=== PATIENT | female | born 1995 | race Two or more races ===

== ENCOUNTER 2017-07-12 09:23 | Inpatient (IN) | payer OTHER ==
[2017-07-12] MEDS ORDERED: Acetaminophen 325 MG Tab PO PRN ×2 (11:31)
[2017-07-12] MEDS ORDERED: Carboprost Tromethamine 250 MCG/1 ML Amp IM PRN (11:31)
[2017-07-12] MEDS ORDERED: Methylergonovine 0.2 MG/1 ML Amp IM PRN (11:31)
[2017-07-12] MEDS ORDERED: Misoprostol 400 MCG (4 X 100 MCG TAB) RECTAL PRN (11:31)
[2017-07-12] MEDS ORDERED: Sodium Chloride 0.9% 10 ML Syringe FLUSH PRN (11:31)
[2017-07-12] MEDS ORDERED: Lactated Ringers 500 ML IV ONE (11:31)
[2017-07-12] MEDS ORDERED: Ondansetron 4 MG/2 ML SDV IV PRN (11:31)
[2017-07-12] MEDS ORDERED: Lidocaine 1% 30 ML SDV INJECT PRN (11:31)
[2017-07-12] MEDS ORDERED: Lactated Ringers 1,000 ML IV SCH (11:45)
[2017-07-12] MEDS: Lactated Ringers 1,000 ML IV SCH ×4 (12:27→22:04)
[2017-07-12] MEDS: Oxytocin/Normal Saline 30 UNIT/500 ML BAG IV SCH (12:28)
--- NOTE | 2017-07-12 20:50 | OBOUT ---
DATE: 07/12/2017 INDICATION FOR NST: Post-dates at 40 and 6/7 weeks. REPORT: Baseline heart rate 145 beats per minute. Moderate tagj-[id number]-lrob variability. Accelerations noted. Perla shows some uterine irritability with only 2 contractions. INTERPRETATION: Category 1, reassuring and reactive NST. For billing, please check and see if this was already billed out through the clinic. [facility] /[id number]
[2017-07-12] MEDS ORDERED: fentaNYL 100 MCG/2 ML SDV ONE (21:12)
[2017-07-12] MEDS ORDERED: ePHEDrine 50 MG/ML SDV ONE (21:29)
--- NOTE | 2017-07-12 22:39 | PCM.PRNOTE ---
- Free Text/Narrative Note: Requested to provide analgesia to full term patient in severe pain. Upon entering the room, patient is sitting on side of bed complaining of severe abdominal pain and discomfort. Procedure was discussed with patient including adverse outcomes and expectations. Pt consented to analgesia, SAB/IT. Pt placed into a proper sitting position. Landmarks for SAB/IT were identified and marked. Back was prepped with betadine x3. A sterile, transparent, fenestrated drape was applied. Excess betadine was removed. Using 3 mL of a 1% lidocaine solution, a skin wheel was placed at the L3/L4 interspace. A 24 ga ( 4 inch) Pencan spinal needle was inserted until positive for CSF. Negative for heme or paresthesias. Injected fentanyl 20 mcg, sufentanil 10 mcg, and 12 mg of a 0.75% bupivacaine solution with an epi wash. Pt was placed left lateral position for approximately 20 minutes. During this time, patient complained of nausea and was given additional fluid bolus plus 10 mg Ephedrine IVP for a BP of 92/44. 30 minutes later, patient was not complaining of any nausea but received 5 mg Ephedrine IVP for a BP of 85/55 (66). Baby was on monitor entire time, had a few early decels and lates. Dr. Mai present. Will continue to monitor
[2017-07-12] MEDS ORDERED: Benzocaine/Menthol 20%-0.5% Spray 56 GM Canister TOP PRN (23:09)
[2017-07-12] MEDS ORDERED: Simethicone 80 MG Tab.Chew PO PRN (23:09)
[2017-07-13] MEDS: Oxytocin/Normal Saline 30 UNIT/500 ML BAG IV SCH (00:46)
[2017-07-13] MEDS: Prenatal Multivitamin with Calcium/Folic Acid/Iron Tab PO SCH (10:03)
[2017-07-13] MEDS: Docusate Sodium 100 MG Cap PO PRN ×2 (10:03→22:03)
[2017-07-13] MEDS: Ferrous Sulfate 325 MG Tab PO SCH (10:03)
[2017-07-13] MEDS: Ibuprofen 800 MG Tab PO PRN ×2 (10:04→22:02)
[2017-07-14] MEDS: Prenatal Multivitamin with Calcium/Folic Acid/Iron Tab PO SCH (08:39)
[2017-07-14] MEDS: Ferrous Sulfate 325 MG Tab PO SCH (08:39)
[2017-07-14] MEDS: Ibuprofen 800 MG Tab PO PRN (08:46)
[2017-07-14] MEDS: Docusate Sodium 100 MG Cap PO PRN (08:49)
[2017-07-14] MEDS ORDERED: ePHEDrine 50 MG/ML SDV IV ONE (10:44)
[2017-07-14] MEDS ORDERED: fentaNYL 100 MCG/2 ML SDV ITHECAL ONE (10:44)
--- NOTE | 2017-07-14 16:07 | DISCH ---
ADMISSION DIAGNOSES: 1. A 40 and 6/7 weeks gestation by last menstrual period. 2. 2, para 1-0-0-1. 3. History of fast labor. 4. Anemia of . 5. Blood type O negative, rubella immune, group B strep negative. DISCHARGE DIAGNOSES: 1. A 40 and 6/7 weeks gestation by last menstrual period. 2. 2, now para 2-0-0-2. 3. History of fast labor. 4. Anemia of . 5. Blood type O negative, rubella immune, group B strep negative. 6. Status post spontaneous vaginal delivery after induction of labor. PERTINENT PROCEDURES: 1. Induction with Pitocin. 2. Artificial rupture of membranes, intrathecal. 3. Spontaneous vaginal delivery. BRIEF HISTORY: A 21-year-old female, admitted to the hospital for induction of labor for post-dates , and this was performed without incident. See admission history and physical and progress notes as well as delivery notes for full details. There were no complications with her delivery. Baby's scores were 8 and 9. weight 3410 g, 7 pounds, 8 ounces. Length 19-3/4 inches. She was in stage I for about 8 hours, and only pushed for 10 minutes, but went quickly from 5 cm dilated to delivery. HOSPITAL COURSE: Hospital course has been good. Since delivery, she has been ambulating, tolerating regular diet, voiding without difficulties. She has not yet had a bowel movement, but is passing flatus. Bleeding has been minimal. She is and that seems to be going well. No symptoms of preeclampsia. Maternal and child bonding is appropriate, and there have been no other concerns. She has had a little bit of nipple pain and is also breast pumping, but that is expected. DISCHARGE CONDITION: Good. PHYSICAL EXAMINATION: Vital Signs: Temperature 97.4, pulse 81, blood pressure 100/74, respiratory rate of 16, and O2 saturations 99% on room air. HEENT: Unremarkable. Heart: Regular without murmur. Lungs: Clear bilaterally. Abdomen: Soft, nontender. Fundus is firm and below the umbilicus. Extremities: No edema, erythema, or tenderness noted. LABORATORY DATA: Discharge hemoglobin is 9.7, platelets 274. DISPOSITION: Home with family. MEDICATIONS: 1. Iron 325 mg twice daily. 2. Ibuprofen 600 mg every 6 hours as needed for pain. 3. Tylenol 650 mg every 6 hours as needed for pain. 4. Colace 100 mg twice daily p.r.n. for constipation. 5. vitamin 1 daily. FOLLOWUP: She will call the office tomorrow and plan on making her 6-week care visit, uncertain if by that time, she will be moving back to [place] or she will still be in the area. DISCHARGE INSTRUCTIONS: Routine post vaginal delivery care instructions were provided, specifically to come back in if she has any increased bleeding, unusual drainage or discharge, fever, chills, increased pain, or other concerns and her questions were answered. [facility] /[id number]
--- NOTE | 2017-07-15 07:03 | DEL ---
DATE: 07/12/2017 PREPROCEDURE DIAGNOSES: 1. A 40 and 6/7 weeks gestation based on last menstrual period. 2. 2, para 1-0-0-1. 3. History of fast labor. 4. Anemia of . 5. Blood type O negative. 6. Rubella immune. 7. Group B strep negative. POSTPROCEDURE DIAGNOSES: 1. A 40 and 6/7 weeks gestation based on last menstrual period. 2. 2, para 2-0-0-2. 3. History of fast labor. 4. Anemia of . 5. Blood type O negative. 6. Rubella immune. 7. Group B strep negative. 8. Status post spontaneous vaginal delivery. 9. Viable male infant. BRIEF HISTORY: A 21-year-old female with the above-listed diagnoses, was brought into the hospital for induction of labor, which was performed with Pitocin and artificial rupture of membranes. She had approximately 8 hours of stage I, pushed for about 10 minutes before successful vaginal delivery as below. She had an intrathecal for pain management, and it worked quite well for her. PROCEDURE IN DETAIL: With the patient in dorsal lithotomy position, she delivered a viable male infant in the OA position over intact perineum. Once was delivered, his mouth was suctioned because of a pocket of fluid being present, and he was dried and stimulated. Three-vessel umbilical cord was doubly clamped and cut, and he was taken over to the warmer to be cleaned up before being given to his mother. Cord blood sample was obtained. Placenta delivered by gentle cord traction and concomitant uterine massage, inspected and intact. Labia, vagina, and cervix were inspected and intact without any significant lacerations. ESTIMATED BLOOD LOSS: 300 mL. COMPLICATIONS: None. DISPOSITION: Mother and baby to stay in the room at this time to initiate bonding. [facility] /[id number] [place]
--- NOTE | 2017-07-15 07:04 | PN ---
DATE: 07/13/2017 SUBJECTIVE: day #1, status post vaginal delivery late last night. Reports that she has been doing well. She has been ambulating and tolerating regular diet. Bleeding has been normal as expected. She has not had a bowel movement yet. She is voiding without difficulties. her baby, seems to be going well. Denies any symptoms of preeclampsia. Has no shortness of breath or chest pain and no other acute concerns. OBJECTIVE: Vital Signs: She is afebrile. Pulse is 97, blood pressure 103/76, and respiratory rate of 16. Heart: Regular without obvious murmur. Lungs: Clear to auscultation bilaterally. Abdomen: Soft and nontender. Fundus is firm and below the umbilicus. Extremities: Trace edema. No erythema or tenderness noted. ASSESSMENT: 1. 2, now para 2-0-0-2. 2. Status post spontaneous vaginal delivery without complications. 3. mother. Rh negative. Baby's blood type is A negative and cord blood. LUNA was negative; therefore, RhoGAM was not indicated. PLAN: Continue normal nursery cares and anticipate discharge home tomorrow as long as all continues to go well. Mother's questions have been answered. [facility] /[id number] [place]
== END 2017-07-14 10:45 | disposition home or self-care (01) | DRG 775 ==
LOC: DL.OBCHECK 09:23 → DL.OB 10:45 → OBSVTOIN 22:34 → DL.OB 22:34
PROVIDERS: ADMIT Family Medicine; ATTEND Family Medicine
PROC: 10E0XZZ Delivery of Products of Conception, External Approach (ICD-10-PCS; principal; 2017-07-12)
PROC: 3E0P3VZ Introduction of Hormone into Female Reproductive, Percutaneous Approach (ICD-10-PCS; 2017-07-12)
PROC: 10907ZC Drainage of Amniotic Fluid, Therapeutic from Products of Conception, Via Natural or Artificial Opening (ICD-10-PCS; 2017-07-12)
PROC: 00HU33Z Insertion of Infusion Device into Spinal Canal, Percutaneous Approach (ICD-10-PCS; 2017-07-12)
PROC: 3E0R3BZ Introduction of Anesthetic Agent into Spinal Canal, Percutaneous Approach (ICD-10-PCS; 2017-07-12)
DX: O48.0 Post-term pregnancy (principal); O99.02 Anemia complicating childbirth; Z37.0 Single live birth; Z3A.41 41 weeks gestation of pregnancy
CPT/HCPCS: 36415; 59409; 85027; A9270-GY; J2405; J2590; J3010; J7120